=== PATIENT | male | born 1955 | race Hispanic/Latino ===

== ENCOUNTER 2022-02-18 20:24 | Inpatient (IN) | payer MEDICARE, OTHER ==
[~2022-02-18] VITALS: Ht 170.2 cm; Wt 76.2 kg
[2022-02-18] MEDS ORDERED: ONDANSETRON HCL INJ 2MG/ML 2ML 2 MG/ML VIAL IV STA (20:41)
[2022-02-18] MEDS ORDERED: SODIUM CHLORIDE FLUSH 10 ML SYR IV PRN (20:44)
[2022-02-18] MEDS ORDERED: Morphine 4mg INJECTION 4 MG/ML INJ IV ONE (20:45)
[2022-02-18 21:01] LABS: BASOPHILS % 0.4 % (0.0-1.0); EOSINOPHILS # (AUTO) 0.2 (0.0-0.4); EOSINOPHILS % 1.7 % (0.0-6.0); HEMATOCRIT 47.3 % (38.2-49.6); LYMPHOCYTES # (AUTO) 1.2 (1.0-3.2); LYMPHOCYTES % 11.2 % (18.0-39.1); MEAN CORPUSCULAR HEMOGLOBIN 33.2 pg (28-32); MEAN CORPUSCULAR HGB CONC 33.8 g/dL (31-35); MEAN CORPUSCULAR VOLUME 98.1 fL (81-99); MONOCYTES # (AUTO) 0.8 (0.2-0.8); MONOCYTES % 6.9 % (4.4-11.3); NEUTROPHILS # (AUTO) 8.6 (2.1-6.9); NEUTROPHILS % 77.9 % (38.7-80.0); PLATELET COUNT 152 x10e3/uL (140-360); RED BLOOD COUNT 4.82 x10e6/uL (4.3-5.7); RED CELL DISTRIBUTION WIDTH 12.4 % (11.7-14.4)
[2022-02-18 21:10] LABS: CLARITY,URINE HAZY (CLEAR); COLOR,URINE YELLOW (YELLOW); INR 0.93; KETONES,URINE NEGATIVE (NEGATIVE); LEUKOCYTE ESTERASE ,URINE NEGATIVE (NEGATIVE); NITRITE,URINE NEGATIVE (NEGATIVE); PROTEIN,URINE DIPSTICK NEGATIVE (NEGATIVE); PROTHROMBIN TIME 13.3 seconds (11.9-14.5)
[2022-02-18 21:11] LABS: PARTIAL THROMBOPLASTIN TIME 31.1 seconds (23.8-35.5); URINE UROBILINOGEN 1 mg/dL (0.2 - 1)
[2022-02-18 21:17] LABS: RBC,URINE 0-5 /HPF (0-5)
[2022-02-18 21:18] LABS: BACTERIA,URINE FEW /HPF; EPITHELIAL CELLS,URINE FEW /LPF
[2022-02-18 21:20] LABS: ALANINE AMINOTRANSFERASE 28 IU/L (0-55); ALBUMIN 3.8 g/dL (3.5-5.0); ALBUMIN/GLOBULIN RATIO 1.2 (0.8-2.0); ALKALINE PHOSPHATASE 46 IU/L (40-150); ANION GAP 15.6 mmol/L (8-16); BLOOD UREA NITROGEN 19 mg/dL (7-26); BUN/CREATININE RATIO 20 (6-25); CALCIUM 9.3 mg/dL (8.4-10.2); CARBON DIOXIDE 30 mmol/L (22-29); CHLORIDE 95 mmol/L (98-107); CREATININE, SERUM 0.97 mg/dL (0.72-1.25); GLUCOSE 119 mg/dL (74-118); LIPASE 19 U/L (8-78); POTASSIUM 3.6 mmol/L (3.5-5.1); SODIUM 137 mmol/L (136-145)
[2022-02-18] MEDS ORDERED: IOPAMIDOL 370 MG/ML 100 ML INFUS..BTL INJ ONE (22:07)
[2022-02-19] VITALS (9 sets, daily range): BP systolic 124–155; BP diastolic 66–98
[2022-02-19] MEDS ORDERED: Morphine 2mg Syringe 2 MG/ML SYR IV PRN
[2022-02-19] MEDS: SODIUM CHLORIDE 0.9% 1000ML 1,000 ML IV SCH ×2 (00:35→20:00)
[2022-02-19] MEDS: METRONIDAZOLE 500MG/NS 100ML 100 ML IV SCH ×4 (00:35→21:15)
[2022-02-19] MEDS ORDERED: ONDANSETRON HCL INJ 2MG/ML 2ML 2 MG/ML VIAL IV PRN (01:00)
[2022-02-19] MEDS ORDERED: BISACODYL 10 MG SUPP PR ONE (10:00)
[2022-02-19] MEDS: HYDRALAZINE HCL 20 MG/ML VIAL IV PRN (11:30)
[2022-02-19] MEDS ORDERED: LOSARTAN POTASS25 MG PO (16:37)
[2022-02-19] MEDS ORDERED: SIMVASTATIN20 MG PO (16:37)
[2022-02-19] MEDS ORDERED: ACETAMINOPHEN 325 MG TAB PO PRN (18:00)
[2022-02-19] MEDS: BISACODYL 10 MG SUPP PR SCH (21:00)
[2022-02-20] VITALS (8 sets, daily range): BP systolic 135–154; BP diastolic 76–96
[2022-02-20] MEDS: SODIUM CHLORIDE 0.9% 1000ML 1,000 ML IV SCH (04:30)
[2022-02-20] MEDS: METRONIDAZOLE 500MG/NS 100ML 100 ML IV SCH ×3 (05:02→20:59)
[2022-02-20 05:48] LABS: BASOPHILS % 0.5 % (0.0-1.0); EOSINOPHILS # (AUTO) 0.2 (0.0-0.4); EOSINOPHILS % 2.6 % (0.0-6.0); HEMATOCRIT 42.3 % (38.2-49.6); LYMPHOCYTES # (AUTO) 1.1 (1.0-3.2); LYMPHOCYTES % 17.1 % (18.0-39.1); MEAN CORPUSCULAR HEMOGLOBIN 32.9 pg (28-32); MEAN CORPUSCULAR HGB CONC 33.1 g/dL (31-35); MEAN CORPUSCULAR VOLUME 99.3 fL (81-99); MONOCYTES # (AUTO) 0.6 (0.2-0.8); MONOCYTES % 9.4 % (4.4-11.3); NEUTROPHILS # (AUTO) 4.2 (2.1-6.9); NEUTROPHILS % 67.8 % (38.7-80.0); PLATELET COUNT 132 x10e3/uL (140-360); RED BLOOD COUNT 4.26 x10e6/uL (4.3-5.7); RED CELL DISTRIBUTION WIDTH 12.5 % (11.7-14.4)
[2022-02-20 06:07] LABS: ANION GAP 12.6 mmol/L (8-16); CALCIUM 8.3 mg/dL (8.4-10.2); CREATININE, SERUM 0.81 mg/dL (0.72-1.25); POTASSIUM 3.6 mmol/L (3.5-5.1)
[2022-02-20] MEDS: BISACODYL 10 MG SUPP PR SCH (08:49)
[2022-02-20] MEDS: SOD CHL 0.45%/POT CHL 20MEQ 1,000 ML IV SCH ×2 (09:59→20:58)
[2022-02-21] VITALS: BP 156/93
[2022-02-21 04:00] VITALS: BP 157/95
[2022-02-21] MEDS: SOD CHL 0.45%/POT CHL 20MEQ 1,000 ML IV SCH (05:00)
[2022-02-21 06:10] LABS: ANION GAP 13.5 mmol/L (8-16); CALCIUM 8.4 mg/dL (8.4-10.2); CREATININE, SERUM 0.81 mg/dL (0.72-1.25); POTASSIUM 3.5 mmol/L (3.5-5.1)
[2022-02-21] MEDS: METRONIDAZOLE 500MG/NS 100ML 100 ML IV SCH ×2 (06:20→14:00)
[2022-02-21] MEDS: HYDRALAZINE HCL 20 MG/ML VIAL IV PRN (08:09)
[2022-02-21 08:26] VITALS: BP 162/82
[2022-02-21] MEDS ORDERED: POTASSIUM CHLORIDE 10MEQ EA PO ONE (09:30)
[2022-02-21 11:52] VITALS: BP 158/84
[2022-02-21 16:08] VITALS: BP 145/82
[2022-02-21] MEDS ORDERED: ENOXAPARIN SOD INJ 40 MG/0.4 ML SYR SC SCH (17:00)
== END 2022-02-21 18:00 | disposition home or self-care (01) | DRG 389 ==
LOC: ER 20:35 → MED/SURG 23:53 → UNDOADMIN 02-19 00:01 → ERHOLD 02-19 00:01 → MED/SURG 02-19 01:35 → ERHOLD 02-19 01:35
PROVIDERS: ADMIT Internal Medicine; ATTEND Internal Medicine
DX: K56.690 Other partial intestinal obstruction (principal); A09 Infectious gastroenteritis and colitis, unspecified; I10 Essential (primary) hypertension; E78.5 Hyperlipidemia, unspecified; K57.30 Diverticulosis of large intestine without perforation or abscess without bleeding; Z85.21 Personal history of malignant neoplasm of larynx; Z20.822 Contact with and (suspected) exposure to COVID-19
CPT/HCPCS: 0223U; 36415; 71045; 74018; 74022; 74177; 80048; 80053; 81001; 83690; 83735; 84484; 85025; 85610; 85730; 93005; 99284; J0360; J0696; J1650; J2270; J2405; J7030; Q9967